=== PATIENT | female | born 2005 | race Caucasian/White ===

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

== ENCOUNTER → 2024-01-27 | Outpatient (REF) | payer OTHER | LOC: M LAB REF 16:18 | PROVIDERS: ATTEND Physician Assistant Medical | DX: J02.9 Acute pharyngitis, unspecified (principal) ==